=== PATIENT | female | born 1970 | race Caucasian/White ===

== ENCOUNTER → 2016-05-29 | Outpatient (CLI) | payer OTHER ==
[~2016-05-29] MED LIST: CHOL20007 PO; CLR10 PO; CYAN10005 PO; MAGN1TAB28 PO; MELO15TA10 PO; MULT-506 PO; PRLSR20 PO; PROB1TAB16 PO
[2016-05-29 13:59] LABS: LYME DISEASE AB IGG NEG (NEG)
[2016-05-29 14:02] LABS: LYME DISEASE AB IGM NEG (NEG)
--- NOTE | 2016-06-25 05:49 | CODING QUERY MEDICAL NECESSITY ---
SUPPORTING DIAGNOSIS NEEDED A supporting diagnosis is required for the test/procedure performed on this patient in order for us to be reimbursed by the patient's insurance. Please provide a supporting diagnosis for the following test/procedure listed below next to the test name along with your signature. *If there is no additional diagnosis for this patient that would support the following test/procedure please document that below next to the test/procedure. Test(s)/Procedure(s) that require a supporting diagnosis: ROUTINE VENIPUNCTURE LYME IGG LYME IGM Provider Signature: Date: Thank you Crista [facility] Information Management Once completed, please kindly fax back to [phone] For questions please call [phone]
== END | disposition home or self-care (01) ==
LOC: C.LABMFLN 11:26
PROVIDERS: ATTEND Family Medicine
DX: R20.2 Paresthesia of skin (principal); W57.XXXA Bitten or stung by nonvenomous insect and other nonvenomous arthropods, initial encounter

== ENCOUNTER → 2016-07-01 | Outpatient (CLI) | payer OTHER ==
--- NOTE | 2016-07-01 14:37 | DIAGNOSTIC IMAGING REPORT ---
CERVICAL SPINE MRI HISTORY: Neck pain with arm numbness and tingling area Cervicalgia, cervical RADICULOPATHY TECHNIQUE: Multiplanar multisequence MRI of the cervical spine was performed without the use of contrast. COMPARISON STUDY: None. FINDINGS: Slight reversal of the normal lordotic curvature within the mid cervical spine. Anterior cervical discectomy and fusion at C6-C7. Alignment is intact. Moderate to severe disc space narrowing at C4-C5 and C5-C6 with endplate osteophytes. Mild disc space narrowing at C3-C4 and C7-T1. Moderate facet degenerative changes at C3-C4 and C4-C5. Prevertebral soft tissues and the C1-C2 interval are intact. The visualized posterior fossa is unremarkable. Normal signal intensity within the cervical spinal cord. C2-C3: No significant central canal or neural foraminal narrowing. C3-C4: No central canal narrowing. Severe right-sided neural foraminal narrowing due to the uncovertebral and facet hypertrophy. C4-C5: Small broad-based posterior disc osteophyte complex resulting in partial effacement of the anterior thecal sac without cord deformity. Mild right and moderate left neural foraminal narrowing due to the uncovertebral hypertrophy. C5-C6: Small broad-based posterior disc osteophyte complex which abuts but does not deform the anterior cord. There is associated moderate to severe bilateral neural foraminal narrowing. C6-C7: No significant central canal or neural foraminal narrowing. C7-T1: No significant central canal or neural foraminal narrowing. IMPRESSION: 1. The cervical spinal cord demonstrates a normal signal intensity. 2. Anterior cervical discectomy and fusion at C6-C7. 3. Slight reversal of the normal lordotic curvature. 4. Degenerative changes as described above with multilevel bilateral neural foraminal narrowing. Electronically signed by: Manfred Pedro M.D. 07/01/2016 2:36 PM Dictated Date/Time: 07/01/2016 2:28 PM
== END | disposition home or self-care (01) ==
LOC: C.MRIBC 13:26
PROVIDERS: ATTEND Physician Assistant Medical
DX: M54.12 Radiculopathy, cervical region (principal); Z98.1 Arthrodesis status

== ENCOUNTER → 2016-11-23 | Outpatient (CLI) | payer OTHER ==
[~2016-11-23] MED LIST changes: -MELO15TA10 PO; +OPTIRAY 320 IV PRN
--- NOTE | 2016-11-23 14:12 | DIAGNOSTIC IMAGING REPORT ---
CT SCAN OF THE ABDOMEN AND PELVIS WITH IV CONTRAST CLINICAL HISTORY: Hematochezia. COMPARISON STUDY: No priors. TECHNIQUE: Following the IV administration of 94 cc of Optiray 320, CT scan of the abdomen and pelvis is performed from the lung bases to the proximal femora. Images are reviewed in the axial, sagittal, and coronal planes. IV contrast was administered without complication. A dose lowering technique was utilized adhering to the principles of ALARA. CT DOSE: 728.54 mGy.cm FINDINGS: Lung bases: The heart is normal in size and without pericardial effusion. There are small bilateral fat-containing Bochdalek hernias. A calcified granulomas noted in the left lower lobe. No airspace consolidation or pleural effusion is seen. Liver: The contrast-enhanced liver is enlarged, measuring 19.2 cm in length. The liver demonstrates diffusely diminished attenuation consistent with hepatic steatosis. There is no intrahepatic biliary ductal dilatation. The hepatic veins and portal veins are patent. Gallbladder: Surgically absent noting clips in the gallbladder fossa. Spleen: Normal in size and attenuation. Pancreas: Unremarkable. Adrenal glands: Unremarkable. Kidneys: The contrast enhanced kidneys are normal in size and without hydronephrosis. The kidneys enhance symmetrically. Abdominal vasculature: The abdominal aorta is normal in course and caliber. Bowel: The small bowel and colon are normal in course and caliber. The appendix is well-visualized and normal. Peritoneum: There is no intraperitoneal free air or abdominal ascites. There is a small fat-containing umbilical hernia. Lymphadenopathy: None. Pelvic viscera: The bladder, uterus, and adnexa are normal as visualized. Bilateral ovarian follicles are noted. Skeletal structures: There is advanced disc space narrowing at L5-S1 with endplate sclerosis. No lytic or blastic lesions are seen. IMPRESSION: 1. There are no acute infectious or inflammatory findings in the abdomen or pelvis. 2. Hepatomegaly and hepatic steatosis. Electronically signed by: Fox Thomas M.D. 11/23/2016 2:10 PM Dictated Date/Time: 11/23/2016 2:07 PM
== END | disposition home or self-care (01) ==
LOC: C.CTS 11:22
PROVIDERS: ATTEND Physician Assistant
DX: K62.5 Hemorrhage of anus and rectum (principal); R16.0 Hepatomegaly, not elsewhere classified; K76.0 Fatty (change of) liver, not elsewhere classified

== ENCOUNTER 2022-03-27 06:11 | Observation (INO) ==
--- NOTE | 2022-02-23 14:45 | PAT Medication Instructions ---
Medication Instructions Date of Service February 23, 2022 Home Medications cyanocobalamin (vitamin B-12) 1,000 mcg capsule 1,000 mcg PO QAM diphenhydramine HCl 25 mg capsule (Benadryl) 25 mg PO HS PRN FOOD REACTION omega-3 acid ethyl esters 1 gram capsule 1 cap PO BID Boswelia 500 mg PO QAM Estrovera 1 tab PO HS Pregnenolone 1 tab PO HS cholecalciferol (vitamin D3) 125 mcg (5,000 unit) tablet (Vitamin D3) 125 mcg PO QAM magnesium 450 mg PO BID turmeric-turmeric ext-pepper 420 mg PO QAM STOP taking 2 weeks before surgery (or as soon as possible if surgery is within 2 weeks) omega-3 acid ethyl esters 1 gram capsule 1 cap PO BID Boswelia 500 mg PO QAM Estrovera 1 tab PO HS Pregnenolone 1 tab PO HS turmeric-turmeric ext-pepper 420 mg PO QAM DO NOT take the morning of surgery cyanocobalamin (vitamin B-12) 1,000 mcg capsule 1,000 mcg PO QAM cholecalciferol (vitamin D3) 125 mcg (5,000 unit) tablet (Vitamin D3) 125 mcg PO QAM magnesium 450 mg PO BID Take evening before surgery diphenhydramine HCl 25 mg capsule (Benadryl) 25 mg PO HS PRN FOOD REACTION (if needed) magnesium 450 mg PO BID Other Notes If you have any questions please call us at [phone] or [phone] or [phone] or [phone]
--- NOTE | 2022-02-26 10:42 | Anesthesiology Consultation ---
Date of Service February 26, 2022 Assessment & Plan (1) Encounter for pre-operative examination: - check urine test STAT am DOS. - Anesthesia complications: pt states she is always slow to wake after surgery, has sensation of difficulty breathing and desaturations. Noted sleep apnea not currently treated. - Case discussed in detail with Dr. Mcgarry who advised patient is acceptable to proceed as planned and does not need PCP clearance, other evaluation, testing or intervention from his standpoint. Patient to call office if any residual symptoms 1-2 days before surgery. Pt aware, denied questions or concerns. - pt reports onset of nasal congestion, pharyngitis, runny nose, slight increase in usual shortness of breath due to nasal congestion per pt. Denies cough, fever, chills or wheezing. She is agreeable to pre-op COVID PCR test in office today, was also advised to contact her PCP from general medical standpoint. She verbalized understanding and agreement, denied questions or concerns. COVID test negative. - Outpatient joint pathway: Per surgeon and patient, plan for outpatient joint program. Upon review of chart- patient is not an acceptable candidate for Same Day Joint Program from anesthesia perspective due to inadequate strong home support. Surgeon's office made aware. Chart Review Chart Review: Acceptable Risk for Surgery and Patient seen in Pre Admission Testing Teaching & Discussion Pre-Anesthesia Teaching/Discussion Notes: Instructed NPO after midnight before surgery, except medications with 15 cc of water. Medication instructions provide d according to the PAT guidelines. History Surgery Operation Date: 03/27/22 10:25 Proposed Procedures p Left Unicompartment Knee Arthroplasty Vs - Polo Montgomery DO s Total Knee Arthroplasty - Polo Montgomery DO Height/Weight Height: 5 ft 5 in Weight: 95.254 kg Allergies Allergy/AdvReac Type Severity Reaction Status Date / Time barley Allergy Unknown GI Verified 02/23/22 11:13 DISTURBANCES/VOMITING kiwi Allergy Unknown GI Verified 02/23/22 11:13 DISTURBANCES/ VOMITING lactase [From Dairy Aid] Allergy Unknown GI Verified 02/23/22 11:13 DISTURBANCES/VOMITING meperidine Allergy Unknown Hallucinati Verified 02/23/22 11:13 ons oats Allergy Unknown GI Verified 02/23/22 11:13 DISTURBANCES/VOMITING papaya Allergy Unknown GI Verified 02/23/22 11:13 DISTURBANCES/VOMITING paprika Allergy Unknown GI Verified 02/23/22 11:13 DISTRUBANCES/VOMITING parsley Allergy Unknown GI Verified 02/23/22 11:13 DISTURBANCES/VOMITING shellfish derived Allergy Unknown GI Verified 02/23/22 11:13 DISTURBANCES/VOMITING shrimp Allergy Unknown GI Verified 02/23/22 11:13 DISTURANCES/VOMITING wheat Allergy Unknown GI Verified 02/23/22 11:13 DISTURBANCES/ VOMITING almond AdvReac Unknown GI Verified 02/23/22 11:13 DISCOMFORT/VOMITING pine nuts Allergy Unknown GI Uncoded 02/23/22 11:13 DISTURBANCES/VOMITING snails Allergy Unknown GI Uncoded 02/23/22 11:13 DISTURBANCES/VOMITING Medications Home Medications Medication Instructions Recorded Confirmed Last Taken cyanocobalamin (vitamin B-12) 1,000 mcg PO QAM 04/08/21 02/23/22 04/10/21 1,000 mcg capsule diphenhydramine HCl 25 mg capsule 25 mg PO HS PRN FOOD REACTION 04/08/21 02/23/22 04/10/21 (Benadryl) omega-3 acid ethyl esters 1 gram 1 cap PO BID 04/08/21 02/23/22 04/10/21 capsule Boswelia 500 mg PO QAM 02/23/22 02/23/22 Unknown Estrovera 1 tab PO HS 02/23/22 02/23/22 Unknown Pregnenolone 1 tab PO HS 02/23/22 02/23/22 Unknown cholecalciferol (vitamin D3) 125 125 mcg PO QAM 02/23/22 02/23/22 Unknown mcg (5,000 unit) tablet (Vitamin D3) magnesium 450 mg PO BID 02/23/22 02/23/22 Unknown turmeric-turmeric ext-pepper 420 mg PO QAM 02/23/22 02/23/22 Unknown Past Medical History Medical History (Updated 02/26/22 @ 12:40 by Ashlee Voss PA-C) Carpal tunnel syndrome Cervical pain (neck) "ROM is good" GERD (gastroesophageal reflux disease) rare, controlled, stable per pt History of COVID-02 FEB 2021, not hosp., test at [facility]. 02/2021, did not test, "felt she was positive due to symptoms"; shortness of breath, loss taste + loss smell for 4 months>resolved except still having problems w/taste & smell Lyme disease hx Skin lesion precancerous, s/p derm intervention-right upper cheek Sleep apnea not currently on treatment Slow to wake up after anesthesia Patient denies h/o stroke, seizures, heart attack, heart failure, DM, HTN, blood clots or blood transfusions. Exercise / Class Metabolic Activity II 4-5 Yardwork/Stairs/Walk up hill (shortness of breath with 1 FOS over past several months, per pt associated with reduced activity and weight gain; denies chest discomfort) Past Family History Family History Grandmother (Maternal) Alzheimer disease Seizure disorder Father Arthritis Rheumatoid arthritis Prostate cancer Family/Other Asthma cousin Allergies Mother Diabetes Dyslipidemia Hypertension Hypothyroidism Daughter Sabina's thyroiditis Sister Allergies Depression Diabetes Sabina's thyroiditis Mental disorder Grandmother (Paternal) Stroke Grandfather (Maternal) Dementia Grandfather (Paternal) Prostate cancer Past Surgical History Surgical History (Updated 02/26/22 @ 11:03 by Ashlee Voss PA-C) H/O section H/O colonoscopy 11/25/2016 repeat 10yrs H/O neck surgery ACDF History of endoscopy "had a feeling that my throat was constricting, but no findings on scope" History of myomectomy uterine Hx of wisdom tooth extraction S/P cholecystectomy S/P lateral meniscectomy of left knee S/P left knee arthroscopy 04/17/21 LMA#4. S/P tonsillectomy Status post hysteroscopic ablation of endometrium HX Past Anesthesia History No Family Hx of Anesthesia Complications and Other (slow to wake, desaturations, dyspnea post-op per pt; denies re-intubation) History of PONV No Hx of PONV and No Hx of Motion Sickness Social History Smoking Status: Never smoker Do You Dip or Chew Tobacco: No Hx Alcohol Use: Yes alcohol intake frequency: holidays/special occasions only Hx Substance Use: No substance use type: does not use Review of Systems Patient denies chest pain or palpitations. Physical Exam Vital Signs Vitals BP 108/71 P 83 TEMP 98.4 SP02 96% on RA RESP 18 Physical Full cervical extension range of motion without pain TMD 3.5 finger breadths Mallampati Score 2 Dentition: intact, denies chipped or loose teeth, caps/crowns, implants or bridges Lungs: normal respiratory effort. Clear throughout to auscultation, no adventitious breath sounds Cardiac: regular rate and rhythm, no murmurs noted Carotid arteries: negative bruit bilat Lab Results Anesthesia Preop Results Results Anesthesia Widget: WBC 6.87 K/ul (4.8-10.8) 02/26/22 Hgb 14.2 g/dl (12.0-16.0) 02/26/22 Hct 42.4 % (34.1-44.9) 02/26/22 Plt 198 K/uL (130-400) 02/26/22 Na 140 mmol/L (136-145) 02/26/22 K 4.1 mmol/L (3.5-5.1) 02/26/22 Cl 104 mmol/L (98-107) 02/26/22 CO2 31 mmol/L (21-32) 02/26/22 BUN 17 mg/dl (6-23) 02/26/22 Creat 0.87 mg/dl (0.6-1.2) 02/26/22 Glucose Level 87 mg/dl (70-99(Fasting)) 02/26/22 PT 10.1 Seconds (9.0-12.0) 02/26/22 PTT 26.3 Seconds (21.0-31.0) 02/26/22 INR 0.9 (0.9-1.1) 02/26/22 Blood Type O Positive 02/26/22 Antibody Screen NEGATIVE 02/26/22 Testing Electrocardiogram Date: 02/26/22 Sinus rhythm with 1st degree AV block, rate 81 bpm Chest X-Ray Date: 02/26/22 Anterior cervical fixation hardware is seen. The cardiomediastinal silhouette is normal. The lungs are clear. No evidence of pleural effusion or pneumothorax. IMPRESSION: No acute chest disease. COVID-19 Risk Screen Screening Information COVID-19 Screen Date: 02/26/22 Exposure 21 Days Family/Household +COVID Last 21 Days: No Exposure 10 Days Any COVID Exposure Last 10 Days: No Symptoms Last 10 Days Experienced COVID Sx Last 10 Days: Yes + COVID 0-90 Days COVID + in Last 0-90 Days: No
[~2022-03-27 06:11] MED LIST changes: +ACETAMINOPHEN 500 MG TAB PO SCH; -CHOL20007 PO; -CLR10 PO; -CYAN10005 PO; +FAMOTIDINE 20 MG TAB PO SCH; +GABAPENTIN 300 MG CAP PO SCH; +LR 500ML BOLUS, THEN 15ML/HR IV SCH; +LR 60ML/HR IV SCH; -MAGN1TAB28 PO; -MULT-506 PO; -OPTIRAY 320 IV PRN; +ORTHO JOINT MIX INFIL SCH; -PRLSR20 PO; -PROB1TAB16 PO; +TRANEXAMIC ACID 1,000 MG **IV Intra-op IV SCH; +TRANEXAMIC ACID 1,000 MG **IV Pre-op IV SCH; +ceFAZolin 2000MG 2,000 MG/15 ML SYR IV SCH; +dexAMETHasone 4 MG TAB PO SCH
[2022-03-27] MEDS ORDERED: ROPIVACAINE 0.5% 5 MG/ML 30 ML VIAL ONE (06:31)
[2022-03-27] MEDS ORDERED: BUPIVACAINE 0.5 % 5 MG/1 ML PF 10ML VIAL ONE (06:31)
[2022-03-27] MEDS ORDERED: DEXAMETHASONE SOD INJ 4 MG/ML VIAL ONE (06:36)
[2022-03-27] MEDS ORDERED: ONDANSETRON INJ 2 MG/ML 2 ML VIAL ONE (06:36)
[2022-03-27] MEDS ORDERED: PROPOFOL IV EMULSION 10 MG/ML 20 ML VIAL IV ONE (06:36)
[2022-03-27] MEDS ORDERED: fentaNYL citrate 100 MCG/2 ML VIAL ONE (06:37)
[2022-03-27] MEDS ORDERED: MIDAZOLAM HCL 1 MG/ML 2ML VIAL ONE ×2 (06:37→08:50)
--- NOTE | 2022-03-27 06:38 | History & Physical Report ---
Date of Service March 27, 2022 Assessment & Plan (1) Osteoarthritis of left knee: We will proceed with a left partial knee replacement surgery. Postoperatively she will be started on aspirin for DVT prophylaxis and kept overnight in the hospital for postoperative medical management.. She plans to use energy physical therapy upon discharge. History of Present Illness Chief Complaint: Osteoarthritis of the left knee. Primary Care Provider: Jami Duran MD Georgina is a pleasant 51-year-old female whom I have been treating for chronic left knee pain. I did a left knee arthroscopy on her in April of 2021. She never did great. X-rays have shown advancing arthritis of the left knee. It is all located medially. I have given her cortisone injections. She has multiple allergies and is not a good candidate for viscosupplementation. She has been doing physical therapy without relief. She has taken a lot of anti- inflammatories. Her knee pain is affecting her daily life. After failing conservative treatment, she has elected to proceed with a partial knee replacement surgery. Allergies Allergy/AdvReac Type Severity Reaction Status Date / Time barley Allergy Unknown GI Verified 03/27/22 06:28 DISTURBANCES/VOMITING kiwi Allergy Unknown GI Verified 03/27/22 06:28 DISTURBANCES/ VOMITING lactase [From Dairy Aid] Allergy Unknown GI Verified 03/27/22 06:28 DISTURBANCES/VOMITING meperidine Allergy Unknown Hallucinati Verified 03/27/22 06:28 ons oats Allergy Unknown GI Verified 03/27/22 06:28 DISTURBANCES/VOMITING papaya Allergy Unknown GI Verified 03/27/22 06:28 DISTURBANCES/VOMITING paprika Allergy Unknown GI Verified 03/27/22 06:28 DISTRUBANCES/VOMITING parsley Allergy Unknown GI Verified 03/27/22 06:28 DISTURBANCES/VOMITING shellfish derived Allergy Unknown GI Verified 03/27/22 06:28 DISTURBANCES/VOMITING shrimp Allergy Unknown GI Verified 03/27/22 06:28 DISTURANCES/VOMITING wheat Allergy Unknown GI Verified 02/23/22 11:13 DISTURBANCES/ VOMITING almond AdvReac Unknown GI Verified 02/23/22 11:13 DISCOMFORT/VOMITING pine nuts Allergy Unknown GI Uncoded 02/23/22 11:13 DISTURBANCES/VOMITING snails Allergy Unknown GI Uncoded 02/23/22 11:13 DISTURBANCES/VOMITING Home Medications Medication Instructions Recorded Confirmed Type cyanocobalamin (vitamin B-12) 1,000 mcg PO QAM 04/08/21 03/27/22 History 1,000 mcg capsule diphenhydramine HCl 25 mg capsule 25 mg PO HS PRN FOOD REACTION 04/08/21 02/23/22 History (Benadryl) omega-3 acid ethyl esters 1 gram 1 cap PO BID 04/08/21 03/27/22 History capsule Boswelia 500 mg PO QAM 02/23/22 03/27/22 History Estrovera 1 tab PO HS 02/23/22 03/27/22 History Pregnenolone 1 tab PO HS 02/23/22 02/23/22 History cholecalciferol (vitamin D3) 125 125 mcg PO QAM 02/23/22 03/27/22 History mcg (5,000 unit) tablet (Vitamin D3) magnesium 450 mg PO BID 02/23/22 03/27/22 History turmeric-turmeric ext-pepper 420 mg PO QAM 02/23/22 03/27/22 History Past Med/Surg History Medical History Carpal tunnel syndrome Cervical pain (neck) "ROM is good" GERD (gastroesophageal reflux disease) rare, controlled, stable per pt History of COVID-02 FEB 2021, not hosp., test at [facility]. 02/2021, did not test, "felt she was positive due to symptoms"; shortness of breath, loss taste + loss smell for 4 months>resolved except still having problems w/taste & smell Lyme disease hx Skin lesion precancerous, s/p derm intervention-right upper cheek Sleep apnea not currently on treatment Slow to wake up after anesthesia Surgical History H/O section H/O colonoscopy 11/25/2016 repeat 10yrs H/O neck surgery ACDF History of endoscopy "had a feeling that my throat was constricting, but no findings on scope" History of myomectomy uterine Hx of wisdom tooth extraction S/P cholecystectomy S/P lateral meniscectomy of left knee S/P left knee arthroscopy 04/17/21 LMA#4. S/P tonsillectomy Status post hysteroscopic ablation of endometrium HX Family History Grandmother (Maternal) Alzheimer disease Seizure disorder Father Arthritis Rheumatoid arthritis Prostate cancer Family/Other Asthma cousin Allergies Mother Diabetes Dyslipidemia Hypertension Hypothyroidism Daughter Sabina's thyroiditis Sister Allergies Depression Diabetes Sabina's thyroiditis Mental disorder Grandmother (Paternal) Stroke Grandfather (Maternal) Dementia Grandfather (Paternal) Prostate cancer Social History Smoking Status: Never smoker Second Hand Exposure: No; Do You Dip or Chew Tobacco: No; Tobacco Cessation Education Requested by Patient: No Hx Alcohol Use: Yes Hx Substance Use: No Preferred Language: Tristanian Communication Ability: Effective Wool Hanker Required: No Beliefs That Will Affect Care: None marital status: Current Living Situation: Spouse Other Information That Helps Us Care for You: No Feels Safe at Home: Yes Safety Concerns: Feels Safe At This Time Assistive Devices: Glasses Review of Systems All systems reviewed & are unremarkable except as noted in HPI & below. Physical Exam On physical examination of the left knee, she is good range of motion of 0 to 120 degrees. No instability. Pain of the distal medial femoral condyle and over the medial joint line.. Constitutional WD/WN, vitals as above Eyes PERRL, conjunctivae normal, anicteric sclerae ENMT external ear and nose normal, oropharynx normal Neck trachea midline, no thyromegaly Respiratory normal respiratory effort, lungs clear to auscultation Cardiovascular RRR, no murmur, no edema Gastrointestinal (Abdomen) normal bowel sounds, soft, nontender, no hepatosplenomegaly Skin no rashes, warm and dry Psychiatric A+Ox3, euthymic affect Results & Data Results & Data Laboratory Results . Diagnostic Findings X-rays of the left knee show medial compartmental arthritis with joint space narrowing, osteophyte formation, and [id number] articulation.. PG Care Time/CCT Total # of Minutes Spent Total Time Spent with Patient: Total time spent is greater than 50% in coordination of care (as documented) at patient's floor/unit and/or counseling patient: Coding Level of Care Code None Diagnoses Osteoarthritis of left knee M17.12
[2022-03-27] MEDS ORDERED: ONDANSETRON INJ 2 MG/ML 2 ML VIAL IV PRN ×2 (07:01→10:46)
[2022-03-27] MEDS ORDERED: ePHEDrine sulfate 50 MG/ML AMP IV PRN (07:01)
[2022-03-27] MEDS ORDERED: ATROPINE SULFATE 0.1 MG/ML 10ML SYR IV PRN (07:01)
[2022-03-27] MEDS ORDERED: fentaNYL citrate 100 MCG/2 ML VIAL IV PRN (07:01)
[2022-03-27] MEDS ORDERED: ORTHO JOINT ANESTHETIC ONE (07:14)
[2022-03-27] MEDS ORDERED: ePHEDrine sulfate 50 MG/ML SYR ONE (09:16)
--- NOTE | 2022-03-27 09:23 | Operative Report ---
PG Post Operative Report Pre & Post Diagnosis Operation Date: 03/27/22 08:05 Pre-Op Diagnosis: Left Knee Degenerative Joint Disease Post-Op Diagnosis: Left Knee Degenerative Joint Disease I identified the patient and participated in the time-out.: Yes Procedure Operation Date: 03/27/22 08:05 Actual Procedures p Left Unicompartment Knee Arthroplasty(Left) - oPlo Montgomery DO Surgeon Polo Montgomery DO Tree Planter Polo Marsh PA-C Estimated Blood Loss 30 Findings Consistent with Post-Op Diagnosis Specimens Left femoral and tibial bone Description of Procedure Implants used: I used a Nasreen persona partial knee replacement system with a size 4 femur, a size E tibia, and a size 8 mm polyethylene insert. On March 27, 2022 Georgina arrived at [facility] for the above procedure. She was seen in the preoperative holding area and the operative extremity was identified and signed. She is given a preoperative antibiotic. She was taken back the operating room and laid on the table in supine position. She was put under general anesthesia. The left knee was prepped and draped in sterile fashion. A timeout was done. The patient and the operative extremity was properly identified. A midline incision was made medial to the patella. Dissection was taken down to the extensor mechanism. A mid vastus arthrotomy was used. A portion of the fat pad was excised. The medial retinaculum was released. The medial meniscus was removed. The patellofemoral joint looked okay and there was no cartilage damage in the lateral compartment. The ACL was intact. A decision was made to do a partial knee replacement surgery. An external tibial guide was lined up. 6 mm was resected off the medial tibial plateau. The knee was then brought in full extension. A size 8 guide seem to be the best fit. The distal femoral cutting block was placed and the distal femoral cut was made. The knee was then brought in flexion. Several different trials were used to size the distal femur and a size 4 seem to be the best fit. The cutting block was pinned into place and the posterior and chamfer cuts were made. 2 drill holes were drilled. Attention was turned back to the tibia. The tibia was determined to be a size E. 2 peg holes were drilled. A trial femoral component was placed. An 8 mm polyethylene insert was placed. The knee was brought through full range of motion and felt to be stable. Trial components were removed. The tourniquet was deflated and hemostasis was obtained. The surrounding soft tissues were injected with 60 cc of an orthopedic pain control cocktail. The tibial and femoral components were then cemented into place with Biomet cement. An 8 mm polyethylene insert was then snapped into place. Once cement had hardened the extensor mechanism was closed with #1 Vicryl. Skin was closed with 2-0 Vicryl, 3 oh VueLock suture, and jean carlos. She was placed in a soft compressive dressing. She was then extubated and transferred to a [facility]. She was taken to the postanesthesia care unit in stable condition. She tolerated the procedure well. Polo Marsh PA-C, was present for the entire procedure. He was critical for patient positioning, prepping, draping, retraction exposure, wound closure and application of sterile dressing. I attest to the content of the Intraoperative Record and any orders documented therein. Any exceptions are noted below.
--- NOTE | 2022-03-27 10:18 | XRay Report ---
TWO VIEWS LEFT KNEE CLINICAL HISTORY: Postoperative examination. FINDINGS: AP and crosstable lateral portable views of the left knee are obtained. A left knee hemiart hroplasty in the medial compartment is in near anatomic alignment. No acute fracture is seen. There a re lateral marginal osteophytes. There are expected postoperative changes around the knee including s kin clips, a surgical drain, soft tissue edema, and subcutaneous gas. IMPRESSION: Expected postoperative changes status post left knee hemiarthroplasty. No acute fracture is seen. ACT 112: Negative or not required by law. Electronically signed by: Fox Thomas M.D. 03/27/2022 10:17 AM
--- NOTE | 2022-03-27 10:23 | Anesthesiology Progress Note ---
Date of Service March 27, 2022 Anesthesia Post Procedure Vital Signs Vital Signs: Temp Pulse Pulse Resp BP Pulse Ox O2 Del Method 03/27/22 10:10 86 14 115/73 97 Room Air 03/27/22 10:00 78 11 L 114/73 100 Oxymask 03/27/22 09:50 84 12 114/73 98 Oxymask 03/27/22 09:40 97.5 F L 84 14 109/67 95 Oxymask 03/27/22 06:31 98.1 F 73 20 138/95 99 Room Air O2 Flow Rate 03/27/22 10:10 03/27/22 10:00 5 03/27/22 09:50 5 03/27/22 09:40 5 03/27/22 06:31 Pain Intensity Left Knee: Pain Intensity: 4 Transfer of Care Handoff Completed per policy Notes Mental Status: alert / awake / arousable and participated in evaluation Patient Amnestic to Procedure: Yes Nausea / Vomiting: adequately controlled Pain: adequately controlled Airway Patency, RR, SpO2: stable & adequate BP & HR: stable & adequate Hydration State: stable & adequate Neuraxial Anesthesia: was administered and sensory block is resolving Anesthetic Complications: no major complications apparent and Pt Satisfied with anesthetic care
[2022-03-27] MEDS ORDERED: SODIUM CHLORIDE 0.9% 1000ML 1,000 ML IV SCH (10:46)
[2022-03-27] MEDS ORDERED: NALOXONE HCL 0.4 MG/1 ML VIAL/CARP IV PRN (10:46)
[2022-03-27] MEDS ORDERED: oxyCODONE HCL IR 5 MG TAB (IMMEDIATE RELEASE) PO PRN (10:46)
[2022-03-27] MEDS ORDERED: METOCLOPRAMIDE HCL INJ 5 MG/ML 2 ML VIAL IV PRN (10:46)
[2022-03-27] MEDS ORDERED: bisacodyL 10 MG SUPP PR PRN (10:46)
[2022-03-27] MEDS ORDERED: HYDROmorphone INJ 0.5 MG/0.5 ML SYR IV PRN (10:46)
[2022-03-27] MEDS ORDERED: MAGNESIUM HYDROXIDE SUSP 30 ML UDC PO PRN (10:46)
[2022-03-27] MEDS ORDERED: KETOROLAC 30 MG/ML VIAL IV SCH (11:15)
[2022-03-27] MEDS ORDERED: ACETAMINOPHEN 500 MG TAB PO SCH (14:00)
[2022-03-27] MEDS ORDERED: ceFAZolin 2000MG 2,000 MG/15 ML SYR IV SCH (15:45)
[2022-03-27] MEDS ORDERED: [UNRECOGNIZED DRUG - OTHER] PO SCH (21:00)
[2022-03-27] MEDS ORDERED: SENNA 8.6 MG TAB PO SCH (21:00)
[2022-03-27] MEDS ORDERED: ASPIRIN 81 MG ECTAB PO SCH (21:00)
[2022-03-27] MEDS ORDERED: PREGNENOLONE PO SCH (21:00)
[2022-03-27] MEDS ORDERED: DOCUSATE SODIUM 100 MG CAP PO SCH (21:00)
[2022-03-28] MEDS ORDERED: dexAMETHasone 4 MG TAB PO SCH (08:00)
[2022-03-28] MEDS ORDERED: MULTIVITAMIN TAB PO SCH (09:00)
--- NOTE | 2022-04-03 15:33 | Discharge Summary ---
Date of Service April 03, 2022 Admission HPI (Per Admitting) Georgina is a pleasant 51-year-old female whom I have been treating for chronic left knee pain. I did a left knee arthroscopy on her in April of 2021. She never did great. X-rays have shown advancing arthritis of the left knee. It is all located medially. I have given her cortisone injections. She has multiple allergies and is not a good candidate for viscosupplementation. She has been doing physical therapy without relief. She has taken a lot of anti- inflammatories. Her knee pain is affecting her daily life. After failing conservative treatment, she has elected to proceed with a partial knee replacement surgery. Admission Exam (Per Admitting) On physical examination of the left knee, she is good range of motion of 0 to 120 degrees. No instability. Pain of the distal medial femoral condyle and over the medial joint line.. Principal Diagnosis Same as "Discharge Diagnosis" noted below under Discharge Instructions. Discharge Data Procedures Performed Operation Date: 03/27/22 08:05 Actual Procedures p Left Unicompartment Knee Arthroplasty(Left) - Polo Montgomery DO Ordered Studies 03/27/22 05:00 US - OR guided needle placemen Routine Hospital Course (1) Status post left partial knee replacement: On March 27, 2022 Lauren arrived at [facility] and underwent a partial knee replacement without complication. Postoperatively she was started on aspirin for DVT prophylaxis and transferred to the general orthopedic floors. She was doing very well. She was seen by physical therapy and was up and ambulating. She decided to go home the same day. She was then discharged home. She will follow-up with orthopedics in 2 weeks. PG Care Time/CCT Total # of Minutes Spent Total Time Spent with Patient: Total time spent is greater than 50% in coordination of care (as documented) at patient's floor/unit and/or counseling patient: Discharge Plan Discharge Items Patient Disposition: Home - Self-Care Reason For Visit: Left Knee Degenerative Joint Disease Discharge Diagnosis: same as above Activity: Per Instructions section Non-emergency contact: Surgeon Call non-emergency contact if: your temperature is above 101.5, your wound has increased redness and your wound has increased drainage Follow-up/Referrals: Jami Duran MD [Primary Care Provider] - 03/31/22 11:30 am Diet: Regular Addtl Attending Provider Instructions: Activity and Therapy Recommendations: * If you are using [facility] then therapy will be provided at your home until they feel you have accomplished all of your goals. * If you are using [facility] then Physical Therapy will be provided until they feel you are ready to start Outpatient Physical Therapy. * If you are not using home therapy then Outpatient Physical Therapy should start about 3-5 days from your day of surgery. Therapy will last about 6-10 weeks * It is important not to put a pillow under your knee when you are relaxing or sleeping. It is just as important to make sure you are getting your knee perfectly straight as it is to regain your knee bend. * You were shown a series of exercises in the hospital. Do these exercises three times each day including the exercises you were shown in physical therapy. * Get up and walk several times each day. For the first four weeks, try not to stand or walk for more than one hour at a time. If you do stand or walk for more than one hour, you will not hurt anything, but your leg will likely swell. * As you feel comfortable, you may change from the walker or crutches to a cane and then to independent walking. Medications: * Narcotic You will likely be sent home from the hospital with a prescription for the narcotic pain medication that worked best throughout your stay. * Aspirin Most patients will be required to take Aspirin 81mg twice a day for 6 weeks after surgery. This is obtained [id number] and a prescription is not necessary. * Other medications may be prescribed for specific circumstances. If you have any questions, please call the office at . * Resume previous home medications unless otherwise instructed TEDs/Elastic Stockings: The white elastic stockings help limit swelling and prevent blood clots from forming in your legs.~ The more you wear them, the more they work. Wear them for six weeks. Dressing Care: The dressing can be changed after physical therapy on postop day #1. Daily dry dressing changes for a few days, especially if the incision is still draining some. If the incision is not draining then you may leave the jean carlos open to air. If there is a little bit of drainage or if the jean carlos are getting stuck on your clothing then cover the incision with a dry dressing. The jean carlos will be removed at your 2 week follow-up appointment. Showering: You may shower 5 days from the day of surgery as long as the incision is no longer draining. You may shower with the jean carlos exposed. Let soapy water run over the jean carlos and pat them dry. Do not scrub or soak the incision. Things To Watch For: * Drainage from the incision site that occurs more than one week after your surgery. * Increased redness at the incision site. * Fever above 102 degrees Fahrenheit. * Unusual chest pain or shortness of breath. * Call [facility] at with any of the above problems Follow-Up Visit: Follow-up with Dr. Montgomery's PA (Polo Marsh) 2-3 weeks after your day of surgery. He will remove your jean carlos and answer any questions. If you have any additional questions or concerns, Dr Montgomery is usually in the office at the same time and will be available An appointment was probably scheduled when you signed-up for surgery in the office. If you have any questions call Office Instructions: More detailed instructions as well as Frequently Asked Questions were provided in a folder by our office when you signed-up for surgery. Please review these instructions when you get home. If you have any further questions or concerns, please feel free to call the office at [phone] Pending Studies at Discharge: No Stand-Alone Forms: [facility], Smoking Cessation Medications and DC Order Prescriptions: New celecoxib [Celebrex] 200 mg capsule 200 mg PO Q12H Qty: 60 0RF oxycodone-acetaminophen [Percocet] 5-325 mg tablet 1 tab PO Q6H PRN (Reason: pain) Qty: 20 0RF Continued omega-3 acid ethyl esters 1 gram capsule 1 cap PO BID cyanocobalamin (vitamin B-12) 1,000 mcg capsule 1,000 mcg PO QAM diphenhydramine HCl [Benadryl] 25 mg Capsule 25 mg PO HS PRN (Reason: FOOD REACTION) cholecalciferol (vitamin D3) [Vitamin D3] 125 mcg (5,000 unit) Tablet 125 mcg PO QAM Boswelia 500 mg PO QAM Estrovera 1 tab PO HS Pregnenolone 1 tab PO HS magnesium 450 mg PO BID Rx Instructions: 150mg at QAM; 300mg HS turmeric-turmeric ext-pepper 420 mg PO QAM No Action oxycodone-acetaminophen [Percocet] 5-325 mg tablet 1 tab PO Q6H PRN (Reason: pain) Qty: 30 0RF oxycodone 5 mg tablet 5 mg PO Q6H PRN (Reason: pain) Qty: 15 0RF Discharge Orders: Discharge Order (Routine); Ordered 03/27/22 Ordered By: Polo Marsh Admission Data Admit Date/Time: 03/27/22 09:42 Attending Provider: Polo Montgomery Admit Provider: Polo Montgomery Primary Care Provider: Jami Duran Other Interventions: Discharge Summary Assessment (RN) Last Done: 03/27/22 14:36
== END 2022-03-27 15:29 | disposition home or self-care (01) ==
LOC: 3N 06:11 → ASU 06:11